=== PATIENT | male | born 1965 | race Caucasian/White ===

== ENCOUNTER 2017-07-17 08:51 | Day surgery (SDC) | payer MEDICAID ==
[2017-07-16 09:07] VITALS: BMI 26.5
[~2017-07-17 08:51] MED LIST: LACTATED RINGERS 1,000 ML IV ONE
[2017-07-17 09:15] VITALS: RESP 16; TEMP 98.6
[2017-07-17] MEDS ORDERED: PROPOFOL 10 MG/ML 20 ML VIAL IV ONE (09:36)
--- NOTE | 2017-07-17 09:46 | P.GSHP ---
History of Present Illness H&P Date: 07/17/17 Chief Complaint: Colon cancer screening Patient here today for colonoscopy. He has not had one previously. No bowel related complaints. No family history of colon cancer. Past Medical History Past Medical History: No Reported History History of Any Multi-Drug Resistant Organisms: None Reported Past Surgical History: Appendectomy, Orthopedic Surgery Additional Past Surgical History / Comment(s): surgery left wrist, ORIF rt ankle Past Anesthesia/Blood Transfusion Reactions: No Reported Reaction Smoking Status: Never smoker - Past Family History Mother Family Medical History: No Reported History Medications and Allergies Home Medications Medication Instructions Recorded Confirmed Type No Known Home Medications [No 07/16/17 07/17/17 History Known Home Medications] Allergies Allergy/AdvReac Type Severity Reaction Status Date / Time No Known Allergies Allergy Verified 07/17/17 09:15 Surgical - Exam Vital Signs Temp Pulse Resp BP Pulse Ox 98.6 F 62 16 126/78 98 07/17/17 09:14 07/17/17 09:14 07/17/17 09:14 07/17/17 09:14 07/17/17 09:14 Physical exam: General: Well-developed, well-nourished HEENT: Normocephalic, sclerae nonicteric Abdomen: Nontender, nondistended Extremities: No edema Neuro: Alert and oriented Assessment and Plan (1) Colon cancer screening Narrative/Plan: Will proceed with colonoscopy at this time. Status: Acute
--- NOTE | 2017-07-17 10:00 | P.PCN ---
Date of Procedure: 07/17/17 Preoperative Diagnosis: Postoperative Diagnosis: Procedure(s) Performed: PREOPERATIVE DIAGNOSIS: Screening POSTOPERATIVE DIAGNOSIS: Normal exam PROCEDURE: Colonoscopy ANESTHESIA: MAC SURGEON: Gurmeet Callaway M.D. SPECIMENS: None ENDOSCOPIC PROCEDURE: The patient was placed on the endoscopy table in the left decubitus position. The Olympus colonoscope was inserted into the anus and passed under direct visualization to the base of the cecum. The appendiceal orifice was visualized. From that point the scope was slowly withdrawn inspecting all surfaces carefully. There were no neoplastic inflammatory or polypoid lesions throughout the cecum, ascending, transverse, descending, sigmoid and rectum. There was no diverticulosis noted. Digital rectal examination was normal. The patient was taken to the recovery room in stable condition per anesthesia guidelines. RECOMMENDATIONS: Increase fiber. Follow-up colonoscopy 10 years. Implants: Indications for Procedure: Operative Findings: Description of Procedure:
[2017-07-17 10:45] VITALS: BP 108/77; PULSE 77
== END 2017-07-17 10:52 | disposition home or self-care (01) ==
LOC: ORWHC2ENDO 08:51
PROVIDERS: ATTEND Surgery
DX: Z12.11 Encounter for screening for malignant neoplasm of colon (principal)
CPT/HCPCS: J2704; G0121